=== PATIENT | female | born 1970 | race Caucasian/White ===

== ENCOUNTER 2016-09-05 18:03 | Observation (INO) ==
[2016-09-05] MEDS ORDERED: Aspirin 81 MG TAB.CHEW PO ONE (18:38)
[2016-09-05 18:41] LABS: Basophils # 0.1 K/mcL (0.0-0.2); Basophils % 0.7 %; Eosinophils # 0.3 K/mcL (0.0-0.6); Eosinophils % 2.1 %; Hemoglobin 12.9 g/dL (11.5-15.4); INR 0.9; Immature Granulocytes % 0.4 % (0-4); Lymphocytes % 33.3 %; Mean Corpuscular HGB Conc 33.9 g/dL (31.6-35.5); Mean Corpuscular Hemoglobin 30.4 pg (28.0-33.3); Mean Corpuscular Volume 89.4 fL (83.0-100.0); Mean Platelet Volume 9.6 fL (9.4-12.4); Monocytes # 0.6 K/mcL (0.0-1.3); Monocytes % 4.8 %; Neutrophils # 7.1 K/mcL (1.6-8.9); Platelet Count 324 K/mcL (140-400); Prothrombin Time 10.1 Seconds (9.4-12.1); Red Blood Count 4.25 M/mcL (3.82-4.97); Red Cell Distribution Width 13.2 % (11.5-14.5); Segmented Neutrophils % 58.7 %
--- NOTE | 2016-09-05 18:42 | Emergency Department Note ---
Disposition Clinical Impression: Chest pain Qualifiers: Chest pain type: unspecified Qualified Code(s): R07.9 - Chest pain, unspecified Disposition: Admitted As Inpatient Condition: Fair Time of Disposition: 20:34 Chest Pain HPI - General Chief Complaint: ED Chest Pain Stated Complaint: Chest pain x4 days Time Seen by Provider: 09/05/16 18:10 Source: patient Mode of arrival: ambulatory Limitations: no limitations Vital Signs Reviewed: Yes Nursing Notes Reviewed: Yes - History of Present Illness HPI Narrative: 46-year-old female history of hypertension, hyperlipidemia, diabetes, smoking, history of CVA, presents with chest pain at rest, she has had pain essentially 4 days, she describes as 10 out of 10 crushing substernal associated with shortness of breath, 10 of 10 today, shows been intermittent for the last 4 days but worse in the last 12-24 hours, nothing alleviates, she has tried anti- inflammatories at home with no relief. She was recently admitted for an episode of chest pain for 5 months ago, the workup that was positive for pneumonia for which she was treated, negative nonstress test. Pt complaint: chest pain Duration: intermittent Onset: during rest Pain Location: substernal Severity: moderate Severity scale (1-10): 10 Quality: aching Improves with: nothing Worsens with: exertion Associated symptoms: Reports: nausea, diaphoresis, dyspnea. Denies: sense of impending doom, palpitations, fever, cough, leg swelling Treatments prior to arrival chest pain: none - Related Data Home Medications Medication Instructions Recorded Confirmed Baclofen [Lioresal] 10 mg PO 1200 09/05/16 09/05/16 Baclofen [Lioresal] 20 mg PO QAM AND QHS 09/05/16 09/05/16 Gabapentin [Neurontin] 600 mg PO TID 09/05/16 09/05/16 Insulin ASPART [Novolog Flexpen] 4 unit SQ TIDAC 09/05/16 09/05/16 Insulin Glargine,Hum.rec.anlog 26 unit SQ QAM 09/05/16 09/05/16 [Lantus Solostar] Lidocaine Patch [Lidoderm 5% patch] 1 each TP DAILY PRN 09/05/16 09/05/16 Metformin [Glucophage] 500 mg PO TIDWM 09/05/16 09/05/16 Omeprazole [PriLOSEC] 20 mg PO DAILY 09/05/16 Paroxetine [Paxil] 20 mg PO DAILY 09/05/16 09/05/16 Tramadol HCl [Ultram] 50 mg PO Q4-6H PRN 09/05/16 09/05/16 Zolpidem [Ambien] 5 mg PO HS 09/05/16 09/05/16 Previous Rx's Medication Instructions Recorded Benazepril HCl 5 mg PO DAILY #30 tablet 02/17/16 Lovastatin [Mevacor] 20 mg PO HS #30 tablet 02/17/16 Allergies Allergy/AdvReac Type Severity Reaction Status Date / Time No Known Allergies Allergy Verified 06/08/16 12:02 All systems ED: reviewed and negative except as stated. Constitutional: Denies: fever, chills Cardiovascular: Reports: as per HPI, chest pain, dyspnea on exertion. Denies: palpitations, syncope Respiratory: Denies: cough, dyspnea, wheezes, hemoptysis Gastrointestinal: Denies: abdominal pain, nausea, vomiting, diarrhea, constipation Chest Pain PMH - Past Medical History Medical history: Reports: CVA, diabetes, hyperlipidemia, hypertension Psychiatric history: Reports: no psych history - Social History Smoking Status: Current every day smoker Alcohol use: Reports: none Drug use: Reports: none Physical Exam Constitutional: mildly tachycardic appears uncomfortable. Clutching her chest Neck: normal inspection, neck is supple, trachea midline Resp: normal chest inspection, CTA bilaterally, no resp distress CV: Tachycardic., no m/g/r GI: normal inspection, Soft, NTND, BS present Back: normal inspection, no tenderness to palpation Neuro: A&O3, no gross motor or sensory deficits bilaterally MSK: normal inspection, bilateral UE and LE with normal ROM, non reproducible chest pain Psych: normal mood, normal affect Skin: No rashes, skin warm, dry, intact - General General appearance: alert Course Course Narrative: 46yofwith heart score 4, comorbidities include hypertension hyperlipidemia, insulin-dependent diabetes, smoking, family history, age, we will do chest pain workup including d-dimer given tachycardia, appears in mild distress, her exam is otherwise fairly unremarkable but her tachycardia does concern me for a acute coronary syndrome or pulmonary embolus so we will evaluate her, treat her pain IV fluids and analgesics and antiemetics and reassess - Reevaluation(s) Reevaluation #1: After multiple rounds of analgesics and antiemetics, patient still with significant chest pain, CTA of chest x-ray negative, initial troponin negative, plan to admit the patient to the hospitalist given heart score of 4 and continued chest pain for rule out. Time: 20:52 Reevaluation #2: Dr Winters accepting for chest pain rule out. Vital Signs Temperature 97.9 F 09/05/16 18:08 Pulse Rate 108 09/05/16 18:08 Respiratory Rate 12 09/05/16 18:08 Blood Pressure 138/75 09/05/16 18:08 O2 Sat by Pulse Oximetry 97 09/05/16 18:08 Temperature 97.9 F 09/05/16 18:08 Pulse Rate 113 09/05/16 20:03 Respiratory Rate 14 09/05/16 21:11 Blood Pressure 104/70 09/05/16 21:11 O2 Sat by Pulse Oximetry 93 L 09/05/16 20:03 Oxygen Delivery Oxygen Delivery Room Air Chest Pain - MDM Narrative Medical decision making narrative: 46-year-old female admitted for chest pain rule out in stable condition at ED admission - Differential Diagnosis Likely: fracture of rib, unstable angina pectoris, atypical chest pain, st elevation myocardial infraction, chest pain - Medical Records Medical records reviewed: Yes I reviewed the patient's medical records. - Lab Data Lab results reviewed: Yes I reviewed the patient's lab results. Result diagrams: 09/05/16 18:30 09/05/16 18:30 Lab Results 09/05/16 09/05/16 09/05/16 Range/Units 18:30 18:30 18:30 WBC 12.0 H (4.3-11.1) K/mcL RBC 4.25 (3.82-4.97) M/mcL Hgb 12.9 (11.5-15.4) g/dL Hct 38.0 (35.3-44.9) % MCV 89.4 (83.0-100.0) fL MCH 30.4 (28.0-33.3) pg MCHC 33.9 (31.6-35.5) g/dL RDW 13.2 (11.5-14.5) % Plt Count 324 (140-400) K/mcL MPV 9.6 (9.4-12.4) fL Immature Gran % 0.4 (0-4) % Seg Neutrophils % 58.7 % Lymphocytes % 33.3 % Monocytes % 4.8 % Eosinophils % 2.1 % Basophils % 0.7 % Neutrophils # 7.1 (1.6-8.9) K/mcL Lymphocytes # 4.0 (0.6-4.6) K/mcL Monocytes # 0.6 (0.0-1.3) K/mcL Eosinophils # 0.3 (0.0-0.6) K/mcL Basophils # 0.1 (0.0-0.2) K/mcL PT 10.1 (9.4-12.1) Seconds INR 0.9 APTT 36.4 H (26.0-36.0) Seconds D-Dimer < 215 (0-500) ng/mLFEU Sodium 139 (136-145) mEq/L Potassium 4.0 (3.5-4.5) mEq/L Chloride 104 (98-109) mEq/L Carbon Dioxide 25 (19-29) mEq/L BUN 16 (7-20) mg/dL Creatinine 0.71 (0.57-1.11) mg/dL Est GFR ( Amer) > 60 (> 60) Est GFR (Non-Af Amer) > 60 (> 60) BUN/Creatinine Ratio 23 (6-26) Glucose 140 H (70-99) mg/dL Calculated Osmolality 291 (280-300) Calcium 9.0 (8.6-10.8) mg/dL Total Bilirubin 0.3 (0.2-1.2) mg/dL Direct Bilirubin 0.1 (0.0-0.5) mg/dL Indirect Bilirubin 0.2 (0.0-1.2) mg/dL AST 21 (5-34) Units/L ALT 35 (0-55) Units/L Alkaline Phosphatase 131 H (38-126) Units/L Troponin I (0-0.03) ng/mL Serum Total Protein 7.3 (6.0-8.3) g/dL Albumin 3.7 (3.5-5.0) g/dL Globulin 3.6 H (2.4-3.5) g/dL Albumin/Globulin Ratio 1.0 L (1.1-2.2) Lipase 41 (8-78) Units/L 09/05/16 Range/Units 18:30 WBC (4.3-11.1) K/mcL RBC (3.82-4.97) M/mcL Hgb (11.5-15.4) g/dL Hct (35.3-44.9) % MCV (83.0-100.0) fL MCH (28.0-33.3) pg MCHC (31.6-35.5) g/dL RDW (11.5-14.5) % Plt Count (140-400) K/mcL MPV (9.4-12.4) fL Immature Gran % (0-4) % Seg Neutrophils % % Lymphocytes % % Monocytes % % Eosinophils % % Basophils % % Neutrophils # (1.6-8.9) K/mcL Lymphocytes # (0.6-4.6) K/mcL Monocytes # (0.0-1.3) K/mcL Eosinophils # (0.0-0.6) K/mcL Basophils # (0.0-0.2) K/mcL PT (9.4-12.1) Seconds INR APTT (26.0-36.0) Seconds D-Dimer (0-500) ng/mLFEU Sodium (136-145) mEq/L Potassium (3.5-4.5) mEq/L Chloride (98-109) mEq/L Carbon Dioxide (19-29) mEq/L BUN (7-20) mg/dL Creatinine (0.57-1.11) mg/dL Est GFR ( Amer) (> 60) Est GFR (Non-Af Amer) (> 60) BUN/Creatinine Ratio (6-26) Glucose (70-99) mg/dL Calculated Osmolality (280-300) Calcium (8.6-10.8) mg/dL Total Bilirubin (0.2-1.2) mg/dL Direct Bilirubin (0.0-0.5) mg/dL Indirect Bilirubin (0.0-1.2) mg/dL AST (5-34) Units/L ALT (0-55) Units/L Alkaline Phosphatase (38-126) Units/L Troponin I 0.00 (0-0.03) ng/mL Serum Total Protein (6.0-8.3) g/dL Albumin (3.5-5.0) g/dL Globulin (2.4-3.5) g/dL Albumin/Globulin Ratio (1.1-2.2) Lipase (8-78) Units/L - Radiology Data Radiology results reviewed: Yes I reviewed the patient's radiology results. - EKG Data EKG attestation: Yes I reviewed and interpreted this EKG. EKG shows normal: sinus rhythm Rate: tachycardia (Sinus tachycardia rate of 102 CT 153 QRS [address] segment changes, inverted T-wave in lead 3 seen on previous EKG in May.) Interpretation: unchanged when compared to prior tracing (date) - Core Measures AMI Core Measures Followed: Yes Heart Score - Score History: Moderately Suspicious EKG: Normal Age: 45-65 Risk Factors: Equal/Greater than 3 risk factor or history of atherosclerotic disease Troponin: Less than normal limit HEART Score Total: 4 Attestation Statement - Attestation Attestation: I personally interviewed and examined this patient and my medical decision- making was reviewed with the ED Resident Physician, Dr. Mayen. I agree with the documented findings, disposition and treatment plan as described in the documentation Patient here with complaints of left sternal chest pain nonradiating with no associated symptoms for the past 4 days constant. Patient rates pain 8 out 10 in severity. Pain did not respond to aspirin and nitroglycerin and patient requesting narcotic pain medicine for pain relief. Patient denies any preceding URI symptoms, no hemoptysis, no syncopal or near-syncopal episodes. No migration of the pain. No associated abdominal pain, nausea vomiting, bowel changes. No midthoracic or low back pain. Patient was admitted for chest pain back in April and had a negative stress echo. Patient has heart score for an ongoing discomfort. Patient's initial troponin and d-dimer are both negative and EKG shows a sinus tachycardia without ST or T wave change. Chest x -ray were unremarkable. Will offer patient a readmission for chest pain of unclear etiology.
[2016-09-05 18:44] LABS: Activated Partial Thrombo Time 36.4 Seconds (26.0-36.0)
[2016-09-05 18:48] LABS: BUN/Creatinine Ratio 23 (6-26); Blood Urea Nitrogen 16 mg/dL (7-20); Carbon Dioxide 25 mEq/L (19-29); Chloride 104 mEq/L (98-109); Glucose 140 mg/dL (70-99); Osmolality,Calculated 291 (280-300); Sodium 139 mEq/L (136-145); eGFR For African Americans > 60 (> 60); eGFR For Non-African Americans > 60 (> 60)
[2016-09-05] MEDS: Nitroglycerin 0.4 MG TAB.SUBL SL ONE ×3 (18:48→18:58)
[2016-09-05 18:56] LABS: D-Dimer < 215 ng/mLFEU (0-500)
[2016-09-05] MEDS ORDERED: Ondansetron 4 MG/2 ML VIAL IVP ONE (19:04)
[2016-09-05] MEDS ORDERED: *HR* Morphine 2 MG/ML SYRINGE IVP ONE (19:04)
[2016-09-05 19:46] LABS: Alanine Aminotransferase 35 Units/L (0-55); Albumin 3.7 g/dL (3.5-5.0); Alkaline Phosphatase 131 Units/L (38-126); Aspartate Amino Transferase 21 Units/L (5-34); Bilirubin,Direct 0.1 mg/dL (0.0-0.5); Bilirubin,Indirect 0.2 mg/dL (0.0-1.2); Bilirubin,Total 0.3 mg/dL (0.2-1.2); Globulin 3.6 g/dL (2.4-3.5); Lipase 41 Units/L (8-78); Total Protein 7.3 g/dL (6.0-8.3)
[2016-09-05] MEDS ORDERED: 0.9 % Sodium Chloride 1,000 ML IV ONE (20:12)
[2016-09-05] MEDS ORDERED: Ketorolac 15 MG/ML VIAL IVP ONE (20:25)
[2016-09-05] MEDS ORDERED: Acetaminophen 325 MG TABLET PO PRN (22:25)
[2016-09-05] MEDS ORDERED: Dextrose Gel 15 GM PO PRN ×2 (22:25)
[2016-09-05] MEDS ORDERED: *HR* Dextrose 50 % in Water (Syg) 50 ML SYRINGE IVP PRN (22:25)
[2016-09-05] MEDS ORDERED: Ondansetron 4 MG/2 ML VIAL IVP PRN (22:25)
[2016-09-05] MEDS ORDERED: Naloxone 0.4 MG/ML INJ IVP PRN (22:25)
[2016-09-05] MEDS ORDERED: D5% in Water 1,000 ML IV PRN (22:25)
--- NOTE | 2016-09-05 23:08 | Internal Med History&Physical ---
Date of Encounter: 09/05/16 Time of Encounter: 22:00 Assessment and Plan (1) Chest pain Current visit: No Status: Acute 1. Will cycle troponins and EKG's. 2. Will consult cardiology given recurrent chest pain, recent negative stress test, and cardiac risk factors. 3. Will check lipid profile. 4. Will treat chest pain with IV Morphine and NTG if necessary. Qualifiers: Chest pain type: precordial pain Qualified Code(s): R07.1 - Chest pain on breathing (2) Diabetes Current visit: No Status: Chronic 1. Hold Metformin. 2. Will use SSI. 3. Hold Lantus for now given npo state. 4. Resume basal insulin when eating and continue SSI. Qualifiers: Diabetes mellitus type: type 2 Diabetes mellitus complication status: without complication Diabetes mellitus custodial insulin use: with terminal manager use Qualified Code(s): E11.9 - Type 2 diabetes mellitus without complications ; Z79.4 - correction (current) use of insulin (3) Hyperlipidemia Current visit: No Status: Chronic 1. Check lipid profile. 2. Resume home meds and adjust accordingly. Qualifiers: Hyperlipidemia type: mixed hyperlipidemia Qualified Code(s): E78.2 - Mixed hyperlipidemia (4) DVT prophylaxis Current visit: Yes Status: Acute 1. Heparin SQ. Internal Medicine - H&P: HPI Chief complaint: chest pain Admitted From: Emergency Dept Plans for Post Hospital Care: Home History of present illness: Ms. Noyola is a 46 year old female who presents with a 5 day history of substernal chest pain and pressure. Symptoms have been off-and-on for the last several days. She was hopeful that they would go away, but they persisted and intensified over the last 24 hours. Symptoms occurred both at rest and with exertion. She therefore came to the ER for evaluation. In the ER, workup was negative. However, given her symptoms and cardiac risk factors, she was admitted to the hospitalist service. Upon my assessment of the patient, she still is having chest pressure. It is not as intense as it was, however. Cardiac risk factors include smoking history , diabetes, and strong family history of premature coronary disease. She denies any fevers, cough, congestion, vomiting, or acid reflux disease. Patient did have a stress test in January, which was negative. She was diagnosed with diabetes this past fall, and she is now on metformin and insulin as well. Past Med Surg Social Fam HX - Past Medical History Attestation: Yes The following information was validated with the patient. Source: patient, old records reviewed Medical history: CVA, diabetes, hyperlipidemia, hypertension, other ( intracranial hemorrage -- 2011) Psychiatric history: no psych history - Past Surgical History Surgical History: cholecystectomy, NICK/BSO, other (neurosurgery -- intracranial hemorrhage) - Social History Smoking Status: Current every day smoker Packs per day: 06/28 Smokeless Tobacco Status: No Alcohol use: none Drug use: none Current living situation: Home, With Family Activity Level: Independent ambulation Recent Out of Country Travel Within the Last 8 Weeks: No - Family History Mother Living Status: Cause of : IA Hx Family Cardiac Disorders: Yes (IA, CHF, HTN, HLD) Hx Family Respiratory Disorders: No Hx Family Cancer: No Hx Family GI Disorders: No Hx Family Genitourinary Disorders: No Hx Family Endocrine Disorder: Yes (DM) Hx Family Musculoskeletal Disorders: No Hx Family Neuromuscular Disorders: No Hx Family Neurologic Disorders: No Hx Family HEENT Disorders: No Hx Family Autoimmune Disorders: No Hx Family Reproductive Disorders: No Hx Family Psychosocial Disorders: No Hx Family Medical Disorders: No Internal Medicine - H&P: Meds Benazepril HCl 5 mg PO DAILY #30 tablet 02/17/16 [Rx] Lovastatin [Mevacor] 20 mg PO HS #30 tablet 02/17/16 [Rx] Baclofen [Lioresal] 10 mg PO 1200 09/05/16 [History] Baclofen [Lioresal] 20 mg PO QAM AND QHS 09/05/16 [History] Gabapentin [Neurontin] 600 mg PO TID 09/05/16 [History] Insulin ASPART [Novolog Flexpen] 4 unit SQ TIDAC 09/05/16 [History] Insulin Glargine,Hum.rec.anlog [Lantus Solostar] 26 unit SQ QAM 09/05/16 [ History] Lidocaine Patch [Lidoderm 5% patch] 1 each TP DAILY PRN 09/05/16 [History] Metformin [Glucophage] 500 mg PO TIDWM 09/05/16 [History] Omeprazole [PriLOSEC] 20 mg PO DAILY 09/05/16 [History] Paroxetine [Paxil] 20 mg PO DAILY 09/05/16 [History] Tramadol HCl [Ultram] 50 mg PO Q4-6H PRN 09/05/16 [History] Zolpidem [Ambien] 5 mg PO HS 09/05/16 [History] Allergies No Known Allergies Allergy (Verified 06/08/16 12:02) - Constitutional Constitutional: no chills, no fever(s), no night sweats - EENT Eyes: no blurry vision, no change in vision Ears: no ear pain, no tinnitus Nose, mouth and throat: no nasal congestion, no nasal discharge, no sinus pain, no sore throat - Cardiovascular Cardiovascular ROS IM: chest pain, diaphoresis, dyspnea, dyspnea on exertion, no edema, no lightheadedness, no palpitations - Respiratory Respiratory: no cough, no hemoptysis, no wheezing, no chest congestion, no excessive phlegm production, no change in phlegm color - Gastrointestinal Gastrointestinal: no abdominal pain, no diarrhea, no hematemesis, no hematochezia, no melena, no nausea, no vomiting - Genitourinary Genitourinary: no dysuria, no hematuria - Musculoskeletal Musculoskeletal ROS IM: no arthralgias, no back pain, no myalgias - Integumentary Integumentary IM: no rash, no jaundice - Neurological Neurological ROS: no dizziness, no focal weakness, no frequent falls, no headache(s) - Psychiatric Psychiatric: no anxiety, no depression - Endocrine Endocrine IM: no polydipsia, no polyuria - Hematologic/Lymphatic Hematologic/Lymphatic: no easy bruising, no lymphadenopathy - Allergic/Immunologic Allergic/Immunologic: no wheezing, no GI upset with certain foods - Constitutional Vitals: Temp Pulse Resp BP Pulse Ox 97.9 F 83 16 91/59 97 09/05/16 21:32 09/05/16 21:32 09/05/16 21:32 09/05/16 21:32 09/05/16 21:32 General appearance: Present: cooperative, A&O X 3, pleasant, no acute distress, answers questions appropriately - Head Head exam: Present: atraumatic, normal inspection - Expanded Head Exam Head exam expanded: Absent: abrasion, contusion, general tenderness - Eye Eye exam: Present: EOMI, normal appearance, PERRL. Absent: scleral icterus Pupils: Present: normal accommodation - ENT ENT exam: Present: mucous membranes dry, normal exam, normal oropharynx - Neck Neck exam general surgery: Present: full ROM, supple, trachea midline. Absent: lymphadenopathy, tenderness - Expanded Neck Exam Neck exam: Absent: carotid bruit - Respiratory Respiratory exam: Present: CTAB. Absent: chest wall tenderness, rales, respiratory distress, rhonchi, wheezes - Cardiovascular Cardiovascular exam: Present: RRR, +S1, +S2. Absent: diastolic murmur, systolic murmur - GI/Abdominal GI/Abdominal exam: Present: normal bowel sounds, soft. Absent: guarding, hepatomegaly, mass, rebound, splenomegaly, tenderness - Extremities Exam Extremities exam: Present: full ROM, warm. Absent: joint swelling, pedal edema - Back Exam Back exam: Present: normal inspection. Absent: CVA tenderness (L), CVA tenderness (R) - Neurological Exam Neurological exam: Present: alert, CN II-XII intact, oriented X3, no focal deficits, strengths equal and symetr throughout - Psychiatric Psychiatric exam: Present: normal affect, normal mood - Skin Skin exam: Present: dry, warm. Absent: rash Internal Med - H&P Results - Labs CBC & Chem 7: 09/05/16 18:30 09/05/16 18:30 - EKG Data -: EKG Interpreted by Myself - EKG Data Prior EKG available for review: yes When compared to previous EKG: there is no significant change EKG comments: 09/05/16 23:14 Sinus tachycardia -- no other acute findings - Diagnostic Studies Chest x-ray Status: image reviewed by me (negative) CT scan - chest Additional comments: Report reviewed: No PE
[2016-09-05] MEDS: 0.9 % Sodium Chloride 1,000 ML IVC SCH (23:10)
[2016-09-05] MEDS: *HR* Heparin 5,000 UNIT/ML VIAL SQ SCH (23:10)
[2016-09-05] MEDS: *HR* Morphine 2 MG/ML SYRINGE IVP PRN (23:10)
[2016-09-05 23:19] LABS: Hemoglobin A1C 5.2 %
[2016-09-06] MEDS: Insulin LISPRO 300 UNITS/3 ML VIAL SQ SCH ×3 (00:03→10:56)
[2016-09-06 01:54] LABS: Basophils # 0.1 K/mcL (0.0-0.2); Basophils % 0.9 %; Eosinophils # 0.3 K/mcL (0.0-0.6); Eosinophils % 2.6 %; Hematocrit 35.9 % (35.3-44.9); Hemoglobin 11.7 g/dL (11.5-15.4); Immature Granulocytes % 0.3 % (0-4); Lymphocytes # 4.7 K/mcL (0.6-4.6); Lymphocytes % 42.9 %; Mean Corpuscular HGB Conc 32.6 g/dL (31.6-35.5); Mean Corpuscular Hemoglobin 29.8 pg (28.0-33.3); Mean Corpuscular Volume 91.6 fL (83.0-100.0); Mean Platelet Volume 9.8 fL (9.4-12.4); Monocytes # 0.6 K/mcL (0.0-1.3); Monocytes % 5.5 %; Neutrophils # 5.3 K/mcL (1.6-8.9); Platelet Count 284 K/mcL (140-400); Red Blood Count 3.92 M/mcL (3.82-4.97); Red Cell Distribution Width 13.3 % (11.5-14.5); Segmented Neutrophils % 47.8 %
[2016-09-06 02:03] LABS: Alanine Aminotransferase 30 Units/L (0-55); Albumin 3.3 g/dL (3.5-5.0); Albumin/Globulin Ratio 1.1 (1.1-2.2); Alkaline Phosphatase 106 Units/L (38-126); Aspartate Amino Transferase 18 Units/L (5-34); BUN/Creatinine Ratio 21 (6-26); Bilirubin,Total 0.4 mg/dL (0.2-1.2); Blood Urea Nitrogen 15 mg/dL (7-20); Calcium 8.8 mg/dL (8.6-10.8); Carbon Dioxide 26 mEq/L (19-29); Chloride 107 mEq/L (98-109); Chol/HDL Ratio 4.4 (0-4.9); Cholesterol 188 mg/dL (< 200); Glucose 84 mg/dL (70-99); HDL Cholesterol 43 mg/dL (40-59); LDL Cholesterol,Calculated 116 mg/dL (0-99); Osmolality,Calculated 286 (280-300); Potassium 4.1 mEq/L (3.5-4.5); Sodium 138 mEq/L (136-145); Total Protein 6.3 g/dL (6.0-8.3); Triglycerides 143 mg/dL (< 150); eGFR For African Americans > 60 (> 60); eGFR For Non-African Americans > 60 (> 60)
[2016-09-06] MEDS: *HR* Morphine 2 MG/ML SYRINGE IVP PRN ×2 (06:21→11:18)
[2016-09-06] MEDS: *HR* Heparin 5,000 UNIT/ML VIAL SQ SCH (06:21)
[2016-09-06] MEDS: 0.9 % Sodium Chloride 1,000 ML IVC SCH (06:22)
--- NOTE | 2016-09-06 08:37 | Internal Med Progress Note ---
Date of Encounter: 09/06/16 Time of Encounter: 07:15 - Assessment and plan (1) Chest pain Current Visit: Yes Status: Acute Assessment and plan: Pt reports 5 day history of non-radiating midsternal chest pain/pressure. Denies n/v, diaphoresis. STates that it became worse last night while at rest watching tv. Pt had stress and echo done in 01/2016. Stress was negative for ischemia or infarction. Echo LVEF 60-65% with normal LV and RV structure and function. She currently denies chest pain or pressure. 1st 2 troponins are negative. Risk factors include DM, obesity, and 1/2 PPD smoker. EKG this a.m. sinus rhythm without ST elevation or T wave inversion. Rate 80, IA int 169, PRS 88, QTc 412. I did speak with Dr. Staton who said cardiology will be glad to see pt. Cardiology consult pending Primer Inspector labs Monitor VS Cardiac diet. Qualifiers: Chest pain type: unspecified Qualified Code(s): R07.9 - Chest pain, unspecified (2) DVT prophylaxis Current Visit: Yes Status: Acute Assessment and plan: Sub Q heparin (3) Diabetes Current Visit: No Status: Chronic Assessment and plan: Pt states that she is well controlled at home and is adherent to her medication regimen. Glucose 81 this a.m, A1c 5.2%. Diabetic diet Continue sliding scale insulin accuchecks q6h Monitor labs Qualifiers: Diabetes mellitus type: type 2 Diabetes mellitus complication status: without complication Diabetes mellitus detention insulin use: with intermodal truck driver use Qualified Code(s): E11.9 - Type 2 diabetes mellitus without complications ; Z79.4 - alf (current) use of insulin (4) Hyperlipidemia Current Visit: No Status: Chronic Assessment and plan: Continue home medications. Qualifiers: Hyperlipidemia type: mixed hyperlipidemia Qualified Code(s): E78.2 - Mixed hyperlipidemia (5) Obesity Current Visit: No Status: Chronic Assessment and plan: BMI 27.3kg/m2 Lifestyle modifications Qualifiers: Obesity type: due to excess calories Obesity severity: non-morbid Qualified Code(s): E66.09 - Other obesity due to excess calories (6) Tobacco abuse Current Visit: Yes Status: Chronic Assessment and plan: Pt smokes 1/2 PPD. Will give smoking cessation materials on discharge. - Time Spent With Patient less than 15 minutes - Subjective Interval history: Pt denies chest pain at this time. She reports a 5 day history of midsternal, non-radiating chest pain without shortness of breath, n/v, or diaphoresis. Pt states it got worse last evening while at rest. Pt states that her blood sugars at home are normally under 100 and that she does smoke about 1/2 PPD. - Constitutional Vitals: Temp Pulse Resp BP Pulse Ox 97.7 F 80 16 115/78 96 09/06/16 07:38 09/06/16 07:38 09/06/16 07:38 09/06/16 07:38 09/06/16 07:38 General appearance: Present: cooperative, A&O X 3, pleasant, no acute distress, answers questions appropriately - Head Head exam: Present: normal inspection - Eye Eye exam: Present: normal appearance, conjuntiva pink - ENT ENT exam: Present: mucous membranes moist, normal exam, normal external ear exam - Neck Neck exam general surgery: Present: full ROM, normal inspection. Absent: lymphadenopathy, tenderness, thyromegaly - Respiratory Respiratory exam: Present: CTAB. Absent: accessory muscle use, chest wall tenderness, decreased breath sounds, rales, respiratory distress, rhonchi, stridor, wheezes - Cardiovascular Cardiovascular exam: Present: RRR, +S1, +S2. Absent: distant heart sounds, systolic murmur, tachycardia - GI/Abdominal GI/Abdominal exam: Present: normal bowel sounds, soft. Absent: distended, hepatomegaly, pulsatile mass, tenderness - Extremities Exam Extremities exam: Present: full ROM, normal capillary refill, normal inspection , warm, radial pulses palpable and symetrical. Absent: calf tenderness, joint swelling, pedal edema, tenderness Additional comments: +3 prabhakar pedal pulses. - Back Exam Back exam: Present: full ROM, normal inspection. Absent: tenderness, vertebral tenderness - Neurological Exam Neurological exam: Present: alert, oriented X3 Internal Medicine: Result - Labs CBC & Chem 7: 09/06/16 01:07 09/06/16 01:07 Labs: Short CBC 09/06/16 Range/Units 01:07 WBC 11.1 (4.3-11.1) K/mcL Hgb 11.7 (11.5-15.4) g/dL Hct 35.9 (35.3-44.9) % Plt Count 284 (140-400) K/mcL Neutrophils # 5.3 (1.6-8.9) K/mcL BMP 09/06/16 01:07 Sodium 138 Potassium 4.1 Chloride 107 Carbon Dioxide 26 BUN 15 Creatinine 0.70 Glucose 84 Calcium 8.8 Cardiac Enzymes 09/06/16 09/06/16 Range/Units 01:07 06:52 Troponin I 0.00 0.00 (0-0.03) ng/mL Liver Function 09/06/16 Range/Units 01:07 Total Bilirubin 0.4 (0.2-1.2) mg/dL AST 18 (5-34) Units/L ALT 30 (0-55) Units/L Alkaline Phosphatase 106 (38-126) Units/L Albumin 3.3 L (3.5-5.0) g/dL - ABG Interpretation ABG results: PT/INR, D-dimer PT 10.1 Seconds (9.4-12.1) 09/05/16 18:30 D-Dimer < 215 ng/mLFEU (0-500) 09/05/16 18:30 Consult Discharge Plan - Plan Referrals: Samuel Fox [Primary Care Provider] -
[2016-09-06] MEDS ORDERED: Gabapentin 300 MG CAPSULE PO SCH (09:00)
[2016-09-06] MEDS ORDERED: Aspirin 81 MG TAB.CHEW PO SCH (09:00)
[2016-09-06] MEDS ORDERED: Baclofen 10 MG TABLET PO SCH ×2 (09:00→12:00)
--- NOTE | 2016-09-06 09:05 | Electrocardiograph Report ---
[place] [id number] Test Date: 2016-09-05 Pat Name: Amber Noyola Department: 102 Room: 3B48 Gender: F Milk Handler: : 1970 Requested By: Salomon Mayen Order Number: [id number] Reading MD: Aida Serrato Measurements Intervals [place] Rate: 102 P: 44 RI: 153 QRS: 10 QRSD: 86 T: -2 QT: 342 QTc: 401 Interpretive Statements SINUS TACHYCARDIA ABNORMAL RHYTHM ECG Electronically Signed On 09-06-2016 9:04:00 EDT by Aida Serrato
--- NOTE | 2016-09-06 10:16 | Cardiology Consult Note ---
Date of Encounter: 09/06/16 Time of Encounter: 09:00 Assessment and Plan (1) Atypical chest pain Status: Acute Patient presented to hospital with atypical chest pain Patient found to have chest wall tenderness and musculoskelatal rib dysfunction Troponins negative EKG sinus tachycardia Patient had prior work up for chest pain with ECHO (02/16/17) demonstrating normal RV and LV function, LVEF 60-65% Non exercise stress demonstrated gated EF 63%, no evidence of ischemia, no arrhythmias on EKG, no chest pain during study Results were discussed with patient and patient verbalized understanding No further study deemed necessary at this time Cardiology will sign off at this time. Please re-consult as needed. Thank you for allowing us to participate in the care of your patient. Discussion w patient/family: The assessment and plan as outlined above was discussed with the patient and/or family members who expressed understanding and agreement. All questions were answered. Thank you for involving us in the care of your patient. Please call with any questions. History of Present Illness Consult date: 09/06/16 Requesting physician: Angel Staton Consult reason: Substernal chest pain Chief complaint: Chest pain History of present illness: Ms. Noyola is a 46 year old female with history significant for ICH, DM type 2 , HLD, HTN, smoking, obesity who presented to [facility] with substernal chest pain 10 /10. Patient states pain is 8/10 at this time and is located left of sternum at approximately the 5th left rib. Pain is constant and non-radiating. Nothing makes pain better. Walking makes pain worse. She does admit to dypnea on exertion after walking. She has difficulty exercising due to residual left- sided weakness from CVA. Patient denies racing heart, palpitations, dyspnea, orthopnea, peripheral edema, headache, dizziness, recent upper respiratory infection, heartburn, nausea, vomiting, diarrhea, constipation, problems urinating, recent trauma to chest. Past Med Surg Social Fam HX - Past Medical History Medical history: CVA, diabetes, hyperlipidemia, hypertension, other ( intracranial hemorrage -- 2012) Psychiatric history: no psych history - Past Surgical History Surgical History: cholecystectomy, NICK/BSO, other (neurosurgery -- intracranial hemorrhage) - Social History Smoking Status: Current every day smoker Packs per day: 1/ Smokeless Tobacco Status: No Alcohol use: none Drug use: none - Family History Mother Living Status: Cause of : [place] Hx Family Cardiac Disorders: Yes ([place], CHF, HTN, HLD) Hx Family Respiratory Disorders: No Hx Family Cancer: No Hx Family GI Disorders: No Hx Family Genitourinary Disorders: No Hx Family Endocrine Disorder: Yes (DM) Hx Family Musculoskeletal Disorders: No Hx Family Neuromuscular Disorders: No Hx Family Neurologic Disorders: No Hx Family HEENT Disorders: No Hx Family Autoimmune Disorders: No Hx Family Reproductive Disorders: No Hx Family Psychosocial Disorders: No Hx Family Medical Disorders: No Medications and Allergies Benazepril HCl 5 mg PO DAILY #30 tablet 02/17/16 [Rx] Lovastatin [Mevacor] 20 mg PO HS #30 tablet 02/17/16 [Rx] Baclofen [Lioresal] 20 mg PO QAM AND QHS 09/05/16 [History] Gabapentin [Neurontin] 600 mg PO TID 09/05/16 [History] Insulin ASPART [Novolog Flexpen] 4 unit SQ TIDAC 09/05/16 [History] Insulin Glargine,Hum.rec.anlog [Lantus Solostar] 26 unit SQ QAM 09/05/16 [ History] Lidocaine Patch [Lidoderm 5% patch] 1 each TP DAILY PRN 09/05/16 [History] Metformin [Glucophage] 500 mg PO TIDWM 09/05/16 [History] Omeprazole [PriLOSEC] 20 mg PO DAILY 09/05/16 [History] Paroxetine [Paxil] 20 mg PO DAILY 09/05/16 [History] Tramadol HCl [Ultram] 50 mg PO Q4-6H PRN 09/05/16 [History] Zolpidem [Ambien] 5 mg PO HS 09/05/16 [History] Allergies No Known Allergies Allergy (Verified 06/08/16 12:02) All Systems Review: A 10-system review of systems was performed and is negative for pertinent findings except as documented above in the HPI. Physical Examination Vital Signs, Last 4 Hours Temp Pulse Resp BP Pulse Ox 09/06/16 08:31 96 09/06/16 07:38 97.7 F 80 16 115/78 96 General: Conversant, No Apparent Distress HEENT: Atraumatic, Normocephaly, Mucus Membranes Moist Neck: No JVD Cardiac: Reg Rate and Rhythm, Normal S1 and S2, No Murmur Lungs: Normal Breath Sounds, No Wheeze, Rales, Rhonchi Neuro: Alert and responsive, No focal deficits noted Abdomen: Soft, Non-Tender Skin: No rashes noted on visualized skin Musculoskeletal: Other (Chest wall tenderness to Ribs 4 through 8 on the left) Extremities: No Clubbing, No Cyanosis, No Edema, Normal Pulses, Other (Weakness to left leg versus right-chronic following hemorrhagic CVA) Results 09/06/16 01:07 09/06/16 01:07 Lab Results 09/06/16 09/06/16 09/06/16 01:07 01:07 01:07 WBC 11.1 Hgb 11.7 Hct 35.9 Plt Count 284 Sodium 138 Potassium 4.1 Chloride 107 Carbon Dioxide 26 BUN 15 Creatinine 0.70 Glucose 84 Calcium 8.8 Magnesium 2.0 Total Bilirubin 0.4 AST 18 ALT 30 Alkaline Phosphatase 106 Troponin I 0.00 09/06/16 06:52 WBC Hgb Hct Plt Count Sodium Potassium Chloride Carbon Dioxide BUN Creatinine Glucose Calcium Magnesium Total Bilirubin AST ALT Alkaline Phosphatase Troponin I 0.00 - Imaging and Cardiology Chest Xray: report reviewed, image reviewed Other Results: CT reviewed report, reviewed image - EKG Interpretation EKG results cardiology: normal ECG, sinus rhythm (tachycardia) Consult Discharge Plan - Plan Instructions: Chest Pain (DC), How to Stop Smoking (GEN), Cigarette Smoking and Your Health (GEN) Referrals: Samuel Fox [Primary Care Provider] - 09/13/16 10:45 am Delta Maldonado DO [Partnered Physician] - 09/27/16 1:15 pm
[2016-09-06 11:04] VITALS: BP 129/85
--- NOTE | 2016-09-06 13:05 | Discharge Summary ---
Date of Encounter: 09/06/16 Time of Encounter: 13:00 - Discharge Diagnosis (1) Chest pain Priority: Primary Status: Acute Comments: Pt has been seen by cardiology, they do not feel that it is cardiac in nature and will not be doing a cardiac cath. Pt reports 4/10 mid-sternal chest pain/ pressure now. Pt is amb around room without difficulty. Pt is not SOB or diaphoretic. No leukocytosis, troponins are negative. Pt is requesting pain medication for home and states that she already has Tramadol and Toradol and that they do not work for her pain. Chest xray is negative for consolidation, effusion or pneumothorax. Pt also had CTA which was negative for any process. Pain is not reproduceable with movement or palpation. Stress test and echo in January 2016 both negative, LVEF 60-65%. Pt has no peripheral edema, lungs are clear. Qualifiers: Chest pain type: unspecified Qualified Code(s): R07.9 - Chest pain, unspecified (2) DVT prophylaxis Priority: Secondary Status: Acute Comments: Sub Q Heparin. (3) Diabetes Priority: Secondary Status: Chronic Comments: Chronic and well controlled with po and injectable. Pt is compliant with medication regimen and diet. A1c 5.2% and glucose <100mg/dl. Pt should continue home medications and follow up with PCP as needed. Qualifiers: Diabetes mellitus type: type 2 Diabetes mellitus complication status: without complication Diabetes mellitus group home insulin use: with group home use Qualified Code(s): E11.9 - Type 2 diabetes mellitus without complications ; Z79.4 - long term care phlebotomist (current) use of insulin (4) Hyperlipidemia Priority: Secondary Status: Chronic Comments: Continue home medications and follow up with PCP as needed and scheduled. Qualifiers: Hyperlipidemia type: mixed hyperlipidemia Qualified Code(s): E78.2 - Mixed hyperlipidemia (5) Obesity Priority: Secondary Status: Chronic Comments: Lifestyle modifications, exercise, maintain diet. Qualifiers: Obesity type: due to excess calories Obesity severity: non-morbid Qualified Code(s): E66.09 - Other obesity due to excess calories (6) Tobacco abuse Priority: Secondary Status: Chronic Comments: Pt states that she smokes less than 1/2 PPD. Pt interested in smoking cessation. Will be given materials on discharge. - Discharge Medications Home Medications: Benazepril HCl 5 mg PO DAILY #30 tablet 02/17/16 [Rx] Lovastatin [Mevacor] 20 mg PO HS #30 tablet 02/17/16 [Rx] Baclofen [Lioresal] 20 mg PO QAM AND QHS 09/05/16 [History] Gabapentin [Neurontin] 600 mg PO TID 09/05/16 [History] Insulin ASPART [Novolog Flexpen] 4 unit SQ TIDAC 09/05/16 [History] Insulin Glargine,Hum.rec.anlog [Lantus Solostar] 26 unit SQ QAM 09/05/16 [ History] Lidocaine Patch [Lidoderm 5% patch] 1 each TP DAILY PRN 09/05/16 [History] Metformin [Glucophage] 500 mg PO TIDWM 09/05/16 [History] Omeprazole [PriLOSEC] 20 mg PO DAILY 09/05/16 [History] Paroxetine [Paxil] 20 mg PO DAILY 09/05/16 [History] Tramadol HCl [Ultram] 50 mg PO Q4-6H PRN 09/05/16 [History] Zolpidem [Ambien] 5 mg PO HS 09/05/16 [History] Allergies/Adverse Reactions: Allergies No Known Allergies Allergy (Verified 06/08/16 12:02) Procedures/tests Complete & Pending: Procedures Performed prior 72 hours Category Date Time Status ECG 12 lead ECG [ECG] AM 0600 Y 09/06/16 06:00 Ordered Date of admission: 09/05/16 21:15 Primary care physician: Samuel Fox Consults: 09/05/16 22:28 Consult to Physician [CONS] Routine Consulting Provider: Samuel Staton Reason for Consult: Recurrent chest pain; stress test negative 02/07. Possible need for LHC. Call Completed: No Discharging clinician: Luiza Albert Anticipated date of discharge: 09/06/16 - Patient Status Disposition: Home, Self-Care Condition: Good Functional capacity at discharge: independent ambulation Overall status at discharge: patient is back to baseline - Discharge Instructions Instructions: Chest Pain (DC), How to Stop Smoking (GEN), Cigarette Smoking and Your Health (GEN) Follow Up With: Samuel Fox [Primary Care Provider] - 09/13/16 10:45 am Delta Maldonado DO [Partnered Physician] - 09/27/16 1:15 pm - Diet and Activity Activity: resume usual activities as tolerated Diet: diabetic diet Hospital course: Ms. Noyola is a 46 year old female who presented to the ED last pm with a 5 day history of mid-sternal non-radiating chest pain/pressure that became worse last night while at rest, watching tv. She denies n/v, diaphoresis. Pt was seen by cardiology and they did not feel that a cath was warranted at this time. Pt had stress and echo in January 2016, both negative, LVEF 60-65%. Troponins are negative. Pt is also type II DM and is well controlled. A1c 5.2% and pt reports that blood glucose at home is normally under 100mg/dl. Pt is stable for discharge. Pt is pain free at this time and vitals WNL. - Time Spent with Patient Total time spent providing and/or coordinating discharge services: - Constitutional Vitals: Temp Pulse Resp BP Pulse Ox 97.8 F 73 16 129/85 99 09/06/16 10:50 09/06/16 10:50 09/06/16 10:50 09/06/16 11:03 09/06/16 10:50 General appearance: Present: cooperative, A&O X 3, pleasant, no acute distress, answers questions appropriately - Head Head exam: Present: normal inspection - Eye Eye exam: Present: normal appearance, conjuntiva pink - ENT ENT exam: Present: mucous membranes moist, normal exam - Neck Neck exam general surgery: Present: full ROM - Respiratory Respiratory exam: Present: CTAB. Absent: decreased breath sounds, rales, respiratory distress, rhonchi, stridor, wheezes - Cardiovascular Cardiovascular exam: Present: RRR, +S1, +S2 - GI/Abdominal GI/Abdominal exam: Present: soft. Absent: tenderness - Extremities Exam Extremities exam: Present: normal capillary refill, normal inspection, warm, radial pulses palpable and symetrical. Absent: pedal edema, tenderness - Neurological Exam Neurological exam: Present: alert, oriented X3. Absent: facial droop, speech deficit
--- NOTE | 2016-09-07 12:45 | Electrocardiograph Report ---
[place] [id number] Test Date: 2016-09-06 Pat Name: Amber Noyola Department: 113 Room: 3B48 Gender: F [employer]: : 1970 Requested By: Angel Staton Order Number: [id number] Reading MD: Micky Fragoso MD Measurements Intervals [place] Rate: 80 P: 59 TN: 169 QRS: 21 QRSD: 88 T: 25 QT: 376 QTc: 412 Interpretive Statements SINUS RHYTHM Electronically Signed On 09-07-2016 12:44:14 EDT by Micky Fragoso MD
== END 2016-09-06 14:03 | disposition home or self-care (01) ==
LOC: EMEROO 18:03 → 3BNU 18:03
PROVIDERS: ADMIT Registered Nurse; ATTEND Registered Nurse

== ENCOUNTER 2017-01-07 19:51 | Observation (INO) ==
[2017-01-07] MEDS ORDERED: *HR* FentaNYL (PF) 100 MCG/2 ML VIAL IVP ONE ×2 (20:44→21:36)
[2017-01-07] MEDS: 0.9 % Sodium Chloride 1,000 ML IVC SCH ×2 (20:54→21:42)
[2017-01-07 20:59] LABS: Basophils # 0.1 K/mcL (0.0-0.2); Basophils % 0.4 %; Eosinophils # 0.1 K/mcL (0.0-0.6); Eosinophils % 0.8 %; Hematocrit 35.5 % (35.3-44.9); Hemoglobin 11.7 g/dL (11.5-15.4); Immature Granulocytes % 0.7 % (0-4); Lymphocytes # 3.5 K/mcL (0.6-4.6); Lymphocytes % 26.1 %; Mean Corpuscular Hemoglobin 29.9 pg (28.0-33.3); Mean Corpuscular Volume 90.8 fL (83.0-100.0); Mean Platelet Volume 10.1 fL (9.4-12.4); Monocytes # 0.6 K/mcL (0.0-1.3); Monocytes % 4.5 %; Neutrophils # 9.1 K/mcL (1.6-8.9); Platelet Count 292 K/mcL (140-400); Red Blood Count 3.91 M/mcL (3.82-4.97); Red Cell Distribution Width 13.3 % (11.5-14.5); Segmented Neutrophils % 67.5 %; VBG HCO3 24.3 mEq/L (21-27); VBG PH 7.38 pH Units (7.32-7.42)
[2017-01-07 21:07] LABS: INR 0.9; Prothrombin Time 9.8 Seconds (9.4-12.1)
[2017-01-07 21:09] LABS: Activated Partial Thrombo Time 29.2 Seconds (26.0-36.0)
[2017-01-07 21:13] LABS: BUN/Creatinine Ratio 26 (6-26); Blood Urea Nitrogen 23 mg/dL (7-20); Calcium 9.4 mg/dL (8.6-10.8); Carbon Dioxide 25 mEq/L (19-29); Chloride 102 mEq/L (98-109); Glucose 368 mg/dL (70-99); Osmolality,Calculated 301 (280-300); Potassium 4.2 mEq/L (3.5-4.5); Sodium 136 mEq/L (136-145); eGFR For African Americans > 60 (> 60); eGFR For Non-African Americans > 60 (> 60)
--- NOTE | 2017-01-07 22:42 | Emergency Department Note ---
Disposition Clinical Impression: Hyperglycemia Chest pain Qualifiers: Chest pain type: unspecified Qualified Code(s): R07.9 - Chest pain, unspecified Disposition: Admitted As Inpatient General Adult HPI - General Chief complaint: ED Chest Pain Stated complaint: "severe chest pain, BG above 500" Time Seen by Provider: 01/07/17 20:27 Source: patient Limitations: no limitations Nursing Notes Reviewed: Yes Vital Signs Reviewed: Yes - History of Present Illness HPI Narrative: 46-year-old female who presents with concern for chest pain. She did have a negative cardiac catheterization last week. She is scheduled for a Holter monitor. Today she presents with chest pain and hyperglycemia. She is on insulin. No fever. POC glucose was elevated at triage. Her chest pain is atypical. Pain Scale: 10 - Related Data Home Medications Medication Instructions Recorded Confirmed Baclofen [Lioresal] 10 mg PO QAM AND QHS 09/05/16 12/21/16 Gabapentin [Neurontin] 600 mg PO TID 09/05/16 12/21/16 Insulin ASPART [Novolog Flexpen] 4 unit SQ TIDAC 09/05/16 12/21/16 Lidocaine Patch [Lidoderm 5% patch] 1 each TP DAILY PRN 09/05/16 12/21/16 Omeprazole [PriLOSEC] 20 mg PO DAILY 09/05/16 12/21/16 Tramadol HCl [Ultram] 50 mg PO Q4-6H PRN 09/05/16 12/21/16 Zolpidem [Ambien] 5 mg PO HS 09/05/16 12/21/16 metFORMIN [Glucophage] 500 mg PO TIDWM 09/05/16 12/21/16 Amitriptyline [Elavil] 10 mg PO HS 12/21/16 12/21/16 Insulin Glargine [Lantus] 15 unit SQ DAILY 12/21/16 12/21/16 Previous Rx's Medication Instructions Recorded Lovastatin [Mevacor] 20 mg PO HS #30 tablet 02/17/16 Naproxen [Naprosyn] 500 mg PO BID #10 tablet 12/27/16 Allergies Allergy/AdvReac Type Severity Reaction Status Date / Time No Known Allergies Allergy Verified 01/07/17 19:56 All systems ED: reviewed and negative except as stated. Past Medical History - Past Medical History Medical history: Reports: CVA, diabetes, hyperlipidemia, hypertension, other Surgical history: Reports: cholecystectomy, NICK/BSO, other Psychiatric history: Reports: no psych history - Social History Smoking Status: Current every day smoker Smokeless Tobacco Status: No Alcohol use: Reports: none Drug use: Reports: none Physical Exam - General Limitations: no limitations General appearance: alert - Head Head exam: atraumatic - Eye Eye exam: Present: normal appearance - ENT ENT exam: normal exam, TM's normal bilaterally - Neck Neck exam: Present: normal inspection, full ROM - Chest Chest inspection: Present: normal inspection - Cardiovascular Cardiovascular exam: Present: tachycardia - Abdominal Exam Abdominal exam: Present: soft, Non-Tender - Expanded Lower Extremity Exam Hip/Pelvis exam: Present: normal inspection, full ROM Upper leg exam: Present: normal inspection, full ROM Neurovascular/Tendon exam: Present: normal capillary refill. Absent: pulse deficit Gait: observed and normal, not tested/not observed - Back Exam Back exam: Present: normal inspection, full ROM - Neurological Exam Neurological exam: Present: alert, oriented X3, CN II-XII intact - Psychiatric Psychiatric exam: Present: normal affect, normal mood - Skin Skin exam: Present: warm, dry Course Vital Signs Temperature 97.9 F 01/07/17 19:52 Pulse Rate 135 01/07/17 19:52 Respiratory Rate 16 01/07/17 19:52 Blood Pressure 154/96 01/07/17 19:52 O2 Sat by Pulse Oximetry 98 01/07/17 19:52 Temperature 97.9 F 01/07/17 19:52 Pulse Rate 108 01/07/17 21:30 Respiratory Rate 16 01/07/17 22:20 Blood Pressure 110/77 01/07/17 22:20 O2 Sat by Pulse Oximetry 97 01/07/17 21:30 Oxygen Delivery Oxygen Delivery Nasal Cannula Medical Decision Making - [facility] Narrative Medical decision making narrative: Sinus tachycardia on EKG, normal axis, normal intervals, nonspecific ST segment changes. D-dimer was negative. Blood sugar was elevated. No evidence of DKA with normal blood gas as well as negative beta hydroxybutyrate. IV fluids initiated. Required multiple doses of pain medication. Suspect symptomatic hyperglycemia versus atypical chest pain. We will admit for further evaluation of chest pain. Do not suspect cardiac etiology given negative cardiac catheterization - Medical Records Medical records reviewed: Yes I reviewed the patient's medical records. - Lab Data Lab results reviewed: Yes I reviewed the patient's lab results. Result diagrams: 01/07/17 20:49 01/07/17 20:49 Lab Results 01/07/17 01/07/17 01/07/17 Range/Units 20:43 20:49 20:49 WBC 13.5 H (4.3-11.1) K/mcL RBC 3.91 (3.82-4.97) M/mcL Hgb 11.7 (11.5-15.4) g/dL Hct 35.5 (35.3-44.9) % MCV 90.8 (83.0-100.0) fL MCH 29.9 (28.0-33.3) pg MCHC 33.0 (31.6-35.5) g/dL RDW 13.3 (11.5-14.5) % Plt Count 292 (140-400) K/mcL MPV 10.1 (9.4-12.4) fL Immature Gran % 0.7 (0-4) % Seg Neutrophils % 67.5 % Lymphocytes % 26.1 % Monocytes % 4.5 % Eosinophils % 0.8 % Basophils % 0.4 % Neutrophils # 9.1 H (1.6-8.9) K/mcL Lymphocytes # 3.5 (0.6-4.6) K/mcL Monocytes # 0.6 (0.0-1.3) K/mcL Eosinophils # 0.1 (0.0-0.6) K/mcL Basophils # 0.1 (0.0-0.2) K/mcL PT 9.8 (9.4-12.1) Seconds INR 0.9 APTT 29.2 (26.0-36.0) Seconds D-Dimer 317 (0-500) ng/mLFEU VBG pH (7.32-7.42) pH Units VBG pCO2 (41-51) mmHg VBG pO2 (25-40) mmHg VBG HCO3 (21-27) mEq/L Sodium (136-145) mEq/L Potassium (3.5-4.5) mEq/L Chloride (98-109) mEq/L Carbon Dioxide (19-29) mEq/L BUN (7-20) mg/dL Creatinine (0.57-1.11) mg/dL Est GFR ( Amer) (> 60) Est GFR (Non-Af Amer) (> 60) BUN/Creatinine Ratio (6-26) Glucose (70-99) mg/dL POC Glucose 402 H* (58-89) Calculated Osmolality (280-300) Calcium (8.6-10.8) mg/dL Troponin I (0-0.03) ng/mL Lipase (8-78) Units/L Beta-Hydroxybutyric Acd (0.02-0.27) mmol/L 01/07/17 01/07/17 01/07/17 Range/Units 20:49 20:49 20:49 WBC (4.3-11.1) K/mcL RBC (3.82-4.97) M/mcL Hgb (11.5-15.4) g/dL Hct (35.3-44.9) % MCV (83.0-100.0) fL MCH (28.0-33.3) pg MCHC (31.6-35.5) g/dL RDW (11.5-14.5) % Plt Count (140-400) K/mcL MPV (9.4-12.4) fL Immature Gran % (0-4) % Seg Neutrophils % % Lymphocytes % % Monocytes % % Eosinophils % % Basophils % % Neutrophils # (1.6-8.9) K/mcL Lymphocytes # (0.6-4.6) K/mcL Monocytes # (0.0-1.3) K/mcL Eosinophils # (0.0-0.6) K/mcL Basophils # (0.0-0.2) K/mcL PT (9.4-12.1) Seconds INR APTT (26.0-36.0) Seconds D-Dimer (0-500) ng/mLFEU VBG pH (7.32-7.42) pH Units VBG pCO2 (41-51) mmHg VBG pO2 (25-40) mmHg VBG HCO3 (21-27) mEq/L Sodium 136 (136-145) mEq/L Potassium 4.2 (3.5-4.5) mEq/L Chloride 102 (98-109) mEq/L Carbon Dioxide 25 (19-29) mEq/L BUN 23 H (7-20) mg/dL Creatinine 0.87 (0.57-1.11) mg/dL Est GFR ( Amer) > 60 (> 60) Est GFR (Non-Af Amer) > 60 (> 60) BUN/Creatinine Ratio 26 (6-26) Glucose 368 H (70-99) mg/dL POC Glucose (58-89) Calculated Osmolality 301 H (280-300) Calcium 9.4 (8.6-10.8) mg/dL Troponin I 0.01 (0-0.03) ng/mL Lipase (8-78) Units/L Beta-Hydroxybutyric Acd 0.21 (0.02-0.27) mmol/L 01/07/17 01/07/17 Range/Units 20:49 20:49 WBC (4.3-11.1) K/mcL RBC (3.82-4.97) M/mcL Hgb (11.5-15.4) g/dL Hct (35.3-44.9) % MCV (83.0-100.0) fL MCH (28.0-33.3) pg MCHC (31.6-35.5) g/dL RDW (11.5-14.5) % Plt Count (140-400) K/mcL MPV (9.4-12.4) fL Immature Gran % (0-4) % Seg Neutrophils % % Lymphocytes % % Monocytes % % Eosinophils % % Basophils % % Neutrophils # (1.6-8.9) K/mcL Lymphocytes # (0.6-4.6) K/mcL Monocytes # (0.0-1.3) K/mcL Eosinophils # (0.0-0.6) K/mcL Basophils # (0.0-0.2) K/mcL PT (9.4-12.1) Seconds INR APTT (26.0-36.0) Seconds D-Dimer (0-500) ng/mLFEU VBG pH 7.38 (7.32-7.42) pH Units VBG pCO2 41 (41-51) mmHg VBG pO2 82 H (25-40) mmHg VBG HCO3 24.3 (21-27) mEq/L Sodium (136-145) mEq/L Potassium (3.5-4.5) mEq/L Chloride (98-109) mEq/L Carbon Dioxide (19-29) mEq/L BUN (7-20) mg/dL Creatinine (0.57-1.11) mg/dL Est GFR ( Amer) (> 60) Est GFR (Non-Af Amer) (> 60) BUN/Creatinine Ratio (6-26) Glucose (70-99) mg/dL POC Glucose (58-89) Calculated Osmolality (280-300) Calcium (8.6-10.8) mg/dL Troponin I (0-0.03) ng/mL Lipase 17 (8-78) Units/L Beta-Hydroxybutyric Acd (0.02-0.27) mmol/L
[2017-01-07] MEDS ORDERED: Ondansetron ODT 4 MG TAB.RAPDIS SL PRN (23:01)
[2017-01-07] MEDS ORDERED: Acetaminophen 325 MG TABLET PO PRN (23:01)
[2017-01-07] MEDS ORDERED: *HR* Morphine 2 MG/ML SYRINGE IVP PRN (23:01)
[2017-01-07] MEDS ORDERED: Naloxone 0.4 MG/ML INJ IVP PRN (23:01)
[2017-01-07] MEDS ORDERED: *HR* Dextrose 50 % in Water (Syg) 50 ML SYRINGE IVP PRN (23:10)
[2017-01-07] MEDS ORDERED: D5% in Water 1,000 ML IVC PRN (23:10)
[2017-01-07] MEDS ORDERED: Dextrose Gel 15 GM PO PRN ×2 (23:10)
[2017-01-07] MEDS ORDERED: Insulin LISPRO 300 UNITS/3 ML VIAL SQ SCH (23:15)
--- NOTE | 2017-01-07 23:40 | Internal Med History&Physical ---
Date of Encounter: 01/07/17 Time of Encounter: 23:35 Assessment and Plan (1) Hyperglycemia Current visit: Yes Status: Acute Patient's blood sugar > 400 on arrival. Patient reports she had trouble getting her blood sugars down today. No evidence of DKA as VBG was normal and betahdroxybutyrate was normal as well. 1L bolus given. Continue IV fluids 0.9NS at 125mL/hr. Check blood sugars ACHS and give sliding scale correction, continue home dose of basal insulin. (2) Chest pain Current visit: Yes Status: Acute Patient presents with mid-sternal, non-radiating stabbing chest pain. Patient has had extensive cardiac work up recently including [facility] on 12/21/16 which showed angiographically normal coronary arteries. She is following with cardiology outpatient and there are plans for a holter monitor to evaluate her tachycardia. Today, EKG shows sinus tachycardia. Troponin negative. serial troponins continuous panel monitor Toradol and Morphine PRN for pain follow up with cardiology outpatient. Qualifiers: Chest pain type: precordial pain Qualified Code(s): R07.2 - Precordial pain (3) Type 2 diabetes mellitus Current visit: Yes Status: Acute diabetic diet Continue home basal dose of insulin 15u levemir daily Check blood sugars ACHS sliding scale correction dose ACHS hypoglycemic protocol. 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 Offered encouragement. Smoking cessation education and nicotine patch ordered. (5) DVT prophylaxis Current visit: No Status: Acute Internal Medicine - H&P: HPI Chief complaint: chest pain Admitted From: Emergency Dept Plans for Post Hospital Care: Home History of present illness: Ms. Noyola is a 46 year old female with hypertension, hyperlipidemia, type 2 diabetes, CVA history, chronic pain presented to the emergency department today with complaints of chest pain. She reports she has been having chest pain on and off for months and has had extensive cardiac workup. She reports her current chest pain started yesterday and has been worsening. She describes the pain as stabbing, in the middle of her chest, nonradiating, relieved by pain medicine given in the ER. She denies any lightheadedness, palpitations, shortness of breath, fever, chills or sweats. She reports chronic numbness and tingling on the left side which is residual from her CVA. She reports a cough with left over from recent diagnosis of bronchitis, she reports his cough is improving. She reports some diarrhea today. Denies any dysuria. Evaluation in the emergency department included an EKG which shows sinus tachycardia without , was elevated at 13.5, however this appears to be chronically elevated. Troponin was negative at 0.01. D-dimer is normal at 317. Blood sugar was elevated at 368. Venous blood gas was within normal limits, lipase was normal at 17. Chest x-ray showed no acute cardiopulmonary disease. She had a left heart catheter on December 21 through cardiology which showed angiographically normal coronary arteries. She is scheduled for a Holter monitor to evaluate her chronic tachycardia. On exam, patient is alert and oriented, in no acute distress. Heart has regular, tachycardic rhythm. Lungs are clear bilaterally to auscultation. No peripheral edema. Peripheral pulses intact. Past Med Surg Social Fam HX - Past Medical History Medical history: CVA, diabetes, hyperlipidemia, hypertension, other Psychiatric history: no psych history - Past Surgical History Surgical History: cholecystectomy, herniorrhaphy, NICK/BSO, other - Social History Smoking Status: Current every day smoker Packs per day: 0.5 Smokeless Tobacco Status: No Alcohol use: none Drug use: none - Family History Mother Living Status: Hx Family Cardiac Disorders: Yes (CA, CHF, HTN, HLD) Hx Family Respiratory Disorders: No Hx Family Cancer: No Hx Family GI Disorders: No Hx Family Endocrine Disorder: Yes (DM) Hx Family Neuromuscular Disorders: No Hx Family Neurologic Disorders: No Hx Family HEENT Disorders: No Hx Family Autoimmune Disorders: No Father Living Status: Still Living Hx Family Cardiac Disorders: Yes Internal Medicine - H&P: Meds Lovastatin [Mevacor] 20 mg PO HS #30 tablet 02/17/16 [Rx] Baclofen [Lioresal] 10 mg PO QAM AND QHS 09/05/16 [History] Gabapentin [Neurontin] 600 mg PO TID 09/05/16 [History] Insulin ASPART [Novolog Flexpen] 4 unit SQ TIDAC 09/05/16 [History] Lidocaine Patch [Lidoderm 5% patch] 1 each TP DAILY PRN 09/05/16 [History] Omeprazole [PriLOSEC] 20 mg PO DAILY 09/05/16 [History] Tramadol HCl [Ultram] 50 mg PO Q4-6H PRN 09/05/16 [History] Zolpidem [Ambien] 5 mg PO HS 09/05/16 [History] metFORMIN [Glucophage] 500 mg PO TIDWM 09/05/16 [History] Amitriptyline [Elavil] 10 mg PO HS 12/21/16 [History] Insulin Glargine [Lantus] 15 unit SQ DAILY 12/21/16 [History] Naproxen [Naprosyn] 500 mg PO BID #10 tablet 12/27/16 [Rx] Allergies No Known Allergies Allergy (Verified 01/07/17 19:56) All Systems PM: A 10-system review of systems was performed and is negative for pertinent findings except as documented above in the HPI. - Constitutional Constitutional: no chills, no fever(s), no night sweats - EENT Eyes: no change in vision, no discharge, no pain, no photophobia Ears: no ear discharge, no ear pain, no tinnitus Nose, mouth and throat: no dysphagia, no nasal discharge, no neck pain, no sore throat - Cardiovascular Cardiovascular ROS IM: chest pain, no diaphoresis, no dyspnea, no lightheadedness, no palpitations, no syncope - Respiratory Respiratory: no cough, no dyspnea, no wheezing, no excessive phlegm production - Gastrointestinal Gastrointestinal: diarrhea, no abdominal pain, no hematemesis, no hematochezia, no melena, no nausea, no vomiting - Genitourinary Genitourinary: no change in urinary stream, no dysuria, no flank pain, no hematuria - Musculoskeletal Musculoskeletal ROS IM: no numbness, no tingling - Integumentary Integumentary IM: no rash, no unusual bruising - Neurological Neurological ROS: no confusion, no convulsions, no focal weakness, no numbness, no tingling, no tremor(s) - Hematologic/Lymphatic Hematologic/Lymphatic: no easy bruising - Constitutional Vitals: Temp Pulse Resp BP Pulse Ox 98.0 F 100 20 139/84 97 01/07/17 22:36 01/07/17 22:36 01/07/17 22:36 01/07/17 22:36 01/07/17 22:57 General appearance: Present: A&O X 3, pleasant, obese - Head Head exam: Present: atraumatic, normocephalic - Eye Eye exam: Present: PERRL, conjuntiva pink, sclera anicteric Pupils: Present: PERRL - Neck Neck exam general surgery: Present: supple, trachea midline. Absent: lymphadenopathy - Respiratory Respiratory exam: Present: CTAB. Absent: accessory muscle use, rales, rhonchi, wheezes - Cardiovascular Cardiovascular exam: Present: RRR, +S1, +S2. Absent: diastolic murmur, gallop, rubs, systolic murmur - GI/Abdominal GI/Abdominal exam: Present: normal bowel sounds, soft, no peritoneal signs. Absent: distended, tenderness - Extremities Exam Extremities exam: Present: warm, radial pulses palpable and symetrical. Absent : calf tenderness, cyanotic, pedal edema - Neurological Exam Neurological exam: Present: CN II-XII intact, oriented X3. Absent: facial droop , speech deficit - Skin Skin exam: Present: dry, intact Internal Med - H&P Results - Labs CBC & Chem 7: 01/07/17 20:49 01/07/17 20:49 Labs: All Lab Results (24 Hours) 01/07/17 01/07/17 01/07/17 Range/Units 20:43 20:49 20:49 WBC 13.5 H (4.3-11.1) K/mcL RBC 3.91 (3.82-4.97) M/mcL Hgb 11.7 (11.5-15.4) g/dL Hct 35.5 (35.3-44.9) % MCV 90.8 (83.0-100.0) fL MCH 29.9 (28.0-33.3) pg MCHC 33.0 (31.6-35.5) g/dL RDW 13.3 (11.5-14.5) % Plt Count 292 (140-400) K/mcL MPV 10.1 (9.4-12.4) fL Immature Gran % 0.7 (0-4) % Seg Neutrophils % 67.5 % Lymphocytes % 26.1 % Monocytes % 4.5 % Eosinophils % 0.8 % Basophils % 0.4 % Neutrophils # 9.1 H (1.6-8.9) K/mcL Lymphocytes # 3.5 (0.6-4.6) K/mcL Monocytes # 0.6 (0.0-1.3) K/mcL Eosinophils # 0.1 (0.0-0.6) K/mcL Basophils # 0.1 (0.0-0.2) K/mcL PT 9.8 (9.4-12.1) Seconds INR 0.9 APTT 29.2 (26.0-36.0) Seconds D-Dimer 317 (0-500) ng/mLFEU VBG pH (7.32-7.42) pH Units VBG pCO2 (41-51) mmHg VBG pO2 (25-40) mmHg VBG HCO3 (21-27) mEq/L Sodium (136-145) mEq/L Potassium (3.5-4.5) mEq/L Chloride (98-109) mEq/L Carbon Dioxide (19-29) mEq/L BUN (7-20) mg/dL Creatinine (0.57-1.11) mg/dL Est GFR ( Amer) (> 60) Est GFR (Non-Af Amer) (> 60) BUN/Creatinine Ratio (6-26) Glucose (70-99) mg/dL POC Glucose 402 H* (58-89) Calculated Osmolality (280-300) Calcium (8.6-10.8) mg/dL Troponin I (0-0.03) ng/mL Lipase (8-78) Units/L Beta-Hydroxybutyric Acd (0.02-0.27) mmol/L 01/07/17 01/07/17 01/07/17 Range/Units 20:49 20:49 20:49 WBC (4.3-11.1) K/mcL RBC (3.82-4.97) M/mcL Hgb (11.5-15.4) g/dL Hct (35.3-44.9) % MCV (83.0-100.0) fL MCH (28.0-33.3) pg MCHC (31.6-35.5) g/dL RDW (11.5-14.5) % Plt Count (140-400) K/mcL MPV (9.4-12.4) fL Immature Gran % (0-4) % Seg Neutrophils % % Lymphocytes % % Monocytes % % Eosinophils % % Basophils % % Neutrophils # (1.6-8.9) K/mcL Lymphocytes # (0.6-4.6) K/mcL Monocytes # (0.0-1.3) K/mcL Eosinophils # (0.0-0.6) K/mcL Basophils # (0.0-0.2) K/mcL PT (9.4-12.1) Seconds INR APTT (26.0-36.0) Seconds D-Dimer (0-500) ng/mLFEU VBG pH (7.32-7.42) pH Units VBG pCO2 (41-51) mmHg VBG pO2 (25-40) mmHg VBG HCO3 (21-27) mEq/L Sodium 136 (136-145) mEq/L Potassium 4.2 (3.5-4.5) mEq/L Chloride 102 (98-109) mEq/L Carbon Dioxide 25 (19-29) mEq/L BUN 23 H (7-20) mg/dL Creatinine 0.87 (0.57-1.11) mg/dL Est GFR ( Amer) > 60 (> 60) Est GFR (Non-Af Amer) > 60 (> 60) BUN/Creatinine Ratio 26 (6-26) Glucose 368 H (70-99) mg/dL POC Glucose (58-89) Calculated Osmolality 301 H (280-300) Calcium 9.4 (8.6-10.8) mg/dL Troponin I 0.01 (0-0.03) ng/mL Lipase (8-78) Units/L Beta-Hydroxybutyric Acd 0.21 (0.02-0.27) mmol/L 01/07/17 01/07/17 01/07/17 Range/Units 20:49 20:49 22:39 WBC (4.3-11.1) K/mcL RBC (3.82-4.97) M/mcL Hgb (11.5-15.4) g/dL Hct (35.3-44.9) % MCV (83.0-100.0) fL MCH (28.0-33.3) pg MCHC (31.6-35.5) g/dL RDW (11.5-14.5) % Plt Count (140-400) K/mcL MPV (9.4-12.4) fL Immature Gran % (0-4) % Seg Neutrophils % % Lymphocytes % % Monocytes % % Eosinophils % % Basophils % % Neutrophils # (1.6-8.9) K/mcL Lymphocytes # (0.6-4.6) K/mcL Monocytes # (0.0-1.3) K/mcL Eosinophils # (0.0-0.6) K/mcL Basophils # (0.0-0.2) K/mcL PT (9.4-12.1) Seconds INR APTT (26.0-36.0) Seconds D-Dimer (0-500) ng/mLFEU VBG pH 7.38 (7.32-7.42) pH Units VBG pCO2 41 (41-51) mmHg VBG pO2 82 H (25-40) mmHg VBG HCO3 24.3 (21-27) mEq/L Sodium (136-145) mEq/L Potassium (3.5-4.5) mEq/L Chloride (98-109) mEq/L Carbon Dioxide (19-29) mEq/L BUN (7-20) mg/dL Creatinine (0.57-1.11) mg/dL Est GFR ( Amer) (> 60) Est GFR (Non-Af Amer) (> 60) BUN/Creatinine Ratio (6-26) Glucose (70-99) mg/dL POC Glucose 266 H (58-89) Calculated Osmolality (280-300) Calcium (8.6-10.8) mg/dL Troponin I (0-0.03) ng/mL Lipase 17 (8-78) Units/L Beta-Hydroxybutyric Acd (0.02-0.27) mmol/L - Diagnostic Studies Chest x-ray Additional comments: Chest X-Ray 01/07/17 20:27 IMPRESSION: No acute cardiopulmonary disease. D/ / Pawel Cox MD / Pawel Cox MD Interpreting Provider: Pawel Cox MD
[2017-01-08] MEDS: Baclofen 10 MG TABLET PO SCH ×2 (00:14→08:36)
[2017-01-08] MEDS: Nicotine 7 MG PATCH.TD24 TD SCH ×2 (00:15→08:36)
[2017-01-08] MEDS: 0.9 % Sodium Chloride 1,000 ML IVC SCH ×11 (00:16→08:36)
[2017-01-08] MEDS: Ketorolac 30 MG/ML VIAL IVP PRN ×2 (02:56→09:13)
[2017-01-08 05:41] LABS: Basophils # 0.1 K/mcL (0.0-0.2); Basophils % 0.7 %; Eosinophils # 0.2 K/mcL (0.0-0.6); Eosinophils % 1.8 %; Hematocrit 33.8 % (35.3-44.9); Hemoglobin 11.2 g/dL (11.5-15.4); Immature Granulocytes % 0.6 % (0-4); Lymphocytes # 3.5 K/mcL (0.6-4.6); Mean Corpuscular HGB Conc 33.1 g/dL (31.6-35.5); Mean Corpuscular Hemoglobin 30.8 pg (28.0-33.3); Mean Corpuscular Volume 92.9 fL (83.0-100.0); Mean Platelet Volume 10.3 fL (9.4-12.4); Monocytes # 0.7 K/mcL (0.0-1.3); Neutrophils # 6.9 K/mcL (1.6-8.9); Platelet Count 251 K/mcL (140-400); Red Blood Count 3.64 M/mcL (3.82-4.97); Red Cell Distribution Width 13.3 % (11.5-14.5); Segmented Neutrophils % 59.9 %
[2017-01-08 05:52] LABS: BUN/Creatinine Ratio 22 (6-26); Blood Urea Nitrogen 14 mg/dL (7-20); Calcium 8.6 mg/dL (8.6-10.8); Carbon Dioxide 25 mEq/L (19-29); Chloride 108 mEq/L (98-109); Glucose 190 mg/dL (70-99); Osmolality,Calculated 290 (280-300); Potassium 3.7 mEq/L (3.5-4.5); Sodium 137 mEq/L (136-145); eGFR For African Americans > 60 (> 60); eGFR For Non-African Americans > 60 (> 60)
[2017-01-08] MEDS: Insulin LISPRO 300 UNITS/3 ML VIAL SQ SCH ×2 (08:37→12:09)
[2017-01-08] MEDS ORDERED: Gabapentin 300 MG CAPSULE PO SCH (09:00)
[2017-01-08] MEDS ORDERED: Insulin DETEMIR 100 UNIT/ML X5UNITS SQ SCH (09:00)
[2017-01-08 11:46] VITALS: BP 153/96
--- NOTE | 2017-01-08 14:02 | Discharge Summary ---
Date of Encounter: 01/08/17 Time of Encounter: 13:00 - Discharge Diagnosis (1) Chest pain Priority: Primary Status: Ruled-out Comments: In review of her chart, this is the patient's ninth admission for chest pain in less than 1 year. Patient had a left heart catheter during her last admission 2 weeks ago that was negative. Troponins negative 2. Chest x-ray negative. No indication of acute coronary syndrome. Throughout this admission and several times prior to discharge, the patient continually asked for narcotic medication. Qualifiers: Chest pain type: precordial pain Qualified Code(s): R07.1 - Chest pain on breathing (2) Drug-seeking behavior Priority: Primary Status: Acute (3) Hyperlipidemia Priority: Secondary Status: Chronic Comments: Lipid panel checked and Radha, triglyceride 235, total cholesterol 202, LDL 112. Continue statin and low cholesterol diet Qualifiers: Hyperlipidemia type: mixed hyperlipidemia Qualified Code(s): E78.2 - Mixed hyperlipidemia (4) Tobacco abuse Priority: Secondary Status: Chronic Comments: Patient states she smokes one half pack per day and is trying to quit on her own. Declines nicotine replacement therapy. (5) Type 2 diabetes mellitus Priority: Secondary Status: Chronic Comments: Controlled at home with a recent A1c of 5.8%. Patient endorsing hyperglycemia prior to presentation up to 600, suspect stress related. Glucose in the low 200s upon discharge. Follow up outpatient. Qualifiers: Diabetes mellitus complication status: with hyperglycemia Diabetes mellitus alf insulin use: with alf use Qualified Code(s): E11.65 - Type 2 diabetes mellitus with hyperglycemia; Z79.4 - USP (current) use of insulin (6) DVT prophylaxis Priority: Primary Status: Acute Comments: Observation patient. Up ad tevin. (7) Esophageal spasm Priority: Primary Status: Suspected - Discharge Medications Prescriptions: Nitroglycerin 0.3 mg SL DAILY PRN #10 tab.subl PRN Reason: esophageal spasm Omeprazole [PriLOSEC] 20 mg PO BID #28 Home Medications: Lovastatin [Mevacor] 20 mg PO HS #30 tablet 02/17/16 [Rx] Baclofen [Lioresal] 10 mg PO QAM AND QHS 09/05/16 [History] Gabapentin [Neurontin] 600 mg PO TID 09/05/16 [History] Insulin ASPART [Novolog Flexpen] 4 unit SQ TIDAC 09/05/16 [History] Lidocaine Patch [Lidoderm 5% patch] 1 each TP DAILY PRN 09/05/16 [History] Tramadol HCl [Ultram] 50 mg PO Q4-6H PRN 09/05/16 [History] Zolpidem [Ambien] 5 mg PO HS 09/05/16 [History] metFORMIN [Glucophage] 500 mg PO TIDWM 09/05/16 [History] Amitriptyline [Elavil] 10 mg PO HS 12/21/16 [History] Insulin Glargine [Lantus] 15 unit SQ DAILY 12/21/16 [History] Naproxen [Naprosyn] 500 mg PO BID #10 tablet 12/27/16 [Rx] Benazepril HCl 5 mg PO DAILY 01/08/17 [History] Nitroglycerin 0.3 mg SL DAILY PRN #10 tab.subl 01/08/17 [Rx] Omeprazole [PriLOSEC] 20 mg PO BID #28 01/08/17 [Rx] Allergies/Adverse Reactions: Allergies No Known Allergies Allergy (Verified 01/07/17 19:56) Date of admission: 01/07/17 22:03 Primary care physician: Samuel Fox Discharging clinician: Christina Edge Anticipated date of discharge: 01/08/17 - Patient Status Disposition: Home, Self-Care Condition: Good Functional capacity at discharge: independent ambulation Overall status at discharge: patient is back to baseline - Discharge Instructions Follow Up With: Samuel Fox [Primary Care Provider] - 01/12/17 10:00 am (follow up will be with Wong Gilmore due to Dr. Fox being full. ) Forms: ED Satisfaction Letter Additional Instructions: Follow-up with primary care provider as scheduled - Diet and Activity Activity: increase activity as tolerated Diet: diabetic diet, low fat, low cholesterol, low salt diet Hospital course: Ms. Noyola is a 46 year old female with past medical history of hypertension, hyperlipidemia, type 2 diabetes, history of CVA, chronic pain. Patient presented to the emergency room for chief complaint of chest pain. Patient states she was having chest pain on and off for months. She states that this pain is started on the day prior to presentation and would progressively worsened described as stabbing, in the middle for chest, without radiation, and relieved only by pain medication given in the emergency department-200 g of fentanyl. Patient denied lightheadedness, palpitations, shortness of breath, fever or chills. Patient reporting chronic numbness and tingling to left side which is chronic from her CVA. Patient also endorsed diarrhea on the day of presentation. She denied dysuria. Workup in the emergency department revealing sinus tachycardia which is chronic for this patient and she is set to have a Holter monitor placed in the near future. Chest x-ray negative. Of note , patient had an heart catheter 2 weeks prior to presentation on 12/21/16 that revealed angiographically normal coronary arteries. She was admitted to the hospitalist service for further evaluation and management. Troponins negative 3. Throughout this admission, the patient continually asked for more narcotic pain medication. Acute coronary syndrome was ruled out and she was informed that she would not not be receiving narcotic pain medication. She became upset but continued to ask for it. She also asked for prescription of narcotic pain medication upon discharge. In further discussion with the patient, she has uncontrolled reflux and states that she gets heartburn all the time despite taking omeprazole daily. Suspect possible esophageal spasms and/or drug seeking behavior. We will trial 2 weeks of twice a day PPI and monitor her response. Will also write for prn Nitro as needed for chest pain that is likely secondary to espohageal spasms. [facility] report was okay but did reveal providers from different areas of [place]. She was discharged home in stable condition with close outpatient follow-up recommended. ITS Impressions Chest X-Ray 01/07/17 20:27 IMPRESSION: No acute cardiopulmonary disease. D/ / Pawel Cox MD / Pawel Cox MD Interpreting Provider: Pawel Cox MD - Time Spent with Patient Total time spent providing and/or coordinating discharge services: - Constitutional Vitals: Temp Pulse Resp BP Pulse Ox 98.2 F 104 16 153/96 95 01/08/17 11:45 01/08/17 11:45 01/08/17 11:45 01/08/17 11:45 01/08/17 11:45 General appearance: Present: A&O X 3, pleasant, no acute distress, obese, answers questions appropriately - Head Head exam: Present: atraumatic, normocephalic - Eye Eye exam: Present: PERRL, conjuntiva pink, sclera anicteric Pupils: Present: PERRL - Neck Neck exam general surgery: Present: supple, trachea midline. Absent: lymphadenopathy - Respiratory Respiratory exam: Present: decreased breath sounds. Absent: accessory muscle use, rales, respiratory distress, rhonchi, wheezes - Cardiovascular Cardiovascular exam: Present: RRR, +S1, +S2. Absent: diastolic murmur, gallop, rubs, systolic murmur - GI/Abdominal GI/Abdominal exam: Present: distended, normal bowel sounds, soft, no peritoneal signs. Absent: tenderness - Extremities Exam Extremities exam: Present: warm, radial pulses palpable and symetrical. Absent : calf tenderness, cyanotic, pedal edema - Neurological Exam Neurological exam: Present: alert, CN II-XII intact, normal gait, oriented X3, no focal deficits, strengths equal and symetr throughout. Absent: pronater drift, facial droop, speech deficit - Skin Skin exam: Present: dry, intact, normal color, warm
--- NOTE | 2017-01-09 06:16 | Electrocardiograph Report ---
[place] [id number] Test Date: 2017-01-07 Pat Name: Amber Noyola Department: 104 Room: 3B48 Gender: F Senior Java Programmer Analyst: OSMAR : [id number] Requested By: Willem Cole Order Number: [id number] Reading MD: Micky Fragoso MD Measurements Intervals [place] Rate: 128 P: 38 KS: 142 QRS: 12 QRSD: 86 T: 29 QT: 304 QTc: 380 Interpretive Statements SINUS TACHYCARDIA Electronically Signed On 01-09-2017 6:14:08 EDT by Micky Fragoso MD
== END 2017-01-08 14:47 | disposition home or self-care (01) ==
LOC: 3BNU 19:51 → EMEROO 19:51 → 3BNU 22:27
PROVIDERS: ADMIT Internal Medicine; ATTEND Nurse Practitioner Family